=== PATIENT | female | born 1990 | race Caucasian/White ===

== ENCOUNTER 2017-10-31 21:26 | Inpatient (IN) | payer BC ==
[2017-10-31] MEDS ORDERED: Nalbuphine 10 MG/1 ML Vial IVPUSH PRN (22:22)
[2017-10-31] MEDS ORDERED: Tranexamic Acid 1,000 MG in Sodium Chloride 0.9% 100 ML IV PRN (22:22)
[2017-10-31] MEDS ORDERED: Misoprostol 200 MCG Tab PO PRN (22:22)
[2017-10-31] MEDS ORDERED: Butorphanol 1 MG/ML SDV IVPUSH PRN (22:22)
[2017-10-31] MEDS ORDERED: Methylergonovine 0.2 MG/1 ML Amp IM PRN (22:22)
[2017-10-31] MEDS ORDERED: Sodium Chloride 0.9% 10 ML Syringe FLUSH PRN (22:22)
[2017-10-31] MEDS ORDERED: Water For Irrigation,Sterile 1,000 ML Container IRR PRN (22:22)
[2017-10-31] MEDS ORDERED: Sodium Chloride 0.9% 2.5 ML Syringe FLUSH PRN (22:22)
[2017-10-31] MEDS ORDERED: Carboprost Tromethamine 250 MCG/1 ML Amp IM PRN (22:22)
[2017-10-31] MEDS ORDERED: Lidocaine 1% 50 ML MDV INJECT PRN (22:22)
[2017-10-31] MEDS ORDERED: Oxytocin/0.9 % Sodium Chloride 30 UNIT/500 ML BAG IV SCH (22:30)
--- NOTE | 2017-10-31 23:12 | PCM.SN ---
- Free Text/Narrative Note: Notified by nursing that they have been unable to obtain IV access. 20g PIV started to Rt wrist, 10mL of blood was obtained for lab studies. Secured with tape and tegaderm.
[2017-11-01] MEDS ORDERED: Terbutaline 1 MG/ML SDV SUBCUT PRN (01:24)
[2017-11-01] MEDS ORDERED: Oxytocin/0.9 % Sodium Chloride 30 UNIT/500 ML BAG IV SCH (01:30)
[2017-11-01] MEDS: Lactated Ringers 1,000 ML IV SCH ×3 (02:06→09:49)
[2017-11-01] MEDS ORDERED: fentaNYL 100 MCG/2 ML SDV ONE (08:12)
[2017-11-01] MEDS ORDERED: EPINEPHrine 1:10,000 1 MG/10 ML Syringe ONE (08:53)
--- NOTE | 2017-11-01 09:52 | PCM.PREANE ---
Preanesthetic Assessment - Anesthesia/Transfusion/Family Hx Anesthesia History: Prior Anesthesia Without Reaction Family History of Anesthesia Reaction: No Transfusion History: No Prior Transfusion(s) Intubation History: Unknown - Review of Systems General: No Symptoms Pulmonary: No Symptoms Cardiovascular: No Symptoms Gastrointestinal: No Symptoms Neurological: No Symptoms Other: Reports: None - Physical Assessment Height: 1.75 m Weight: 108.862 kg ASA Class: 2 Mental Status: Alert & Oriented x3 Airway Class: Mallampati = 2 Dentition: Reports: Normal Dentition Thyro-Mental Finger Breadths: 3 Mouth Opening Finger Breadths: 3 ROM/Head Extension: Full Lungs: Clear to Auscultation, Normal Respiratory Effort Cardiovascular: Regular Rate, Regular Rhythm - Lab Values: Laboratory Last Values WBC 13.24 K/uL (4.0-11.0) H 10/31/17 23:00 RBC 4.15 M/uL (4.30-5.90) L 10/31/17 23:00 Hgb 12.9 g/dL (12.0-16.0) 10/31/17 23:00 Hct 38.1 % (36.0-46.0) 10/31/17 23:00 MCV 91.8 fL (80.0-98.0) 10/31/17 23:00 MCH 31.1 pg (27.0-32.0) 10/31/17 23:00 MCHC 33.9 g/dL (31.0-37.0) 10/31/17 23:00 RDW Std Deviation 47.1 fl (28.0-62.0) 10/31/17 23:00 RDW Coeff of Chloé 14 % (11.0-15.0) 10/31/17 23:00 Plt Count 223 K/uL (150-400) 10/31/17 23:00 MPV 10.90 fL (7.40-12.00) 10/31/17 23:00 Nucleated RBC % 0.0 /100WBC 10/31/17 23:00 Nucleated RBCs # 0 K/uL 10/31/17 23:00 Membrane Rupture POSITIVE 10/31/17 21:50 Blood Type O POSITIVE 10/31/17 23:00 Antibody Screen NEGATIVE 10/31/17 23:00 - Allergies Allergies/Adverse Reactions: Allergies Allergy/AdvReac Type Severity Reaction Status Date / Time No Known Allergies Allergy Verified 10/31/17 21:32 - Blood Blood Available: No - Anesthesia Plan Pre-Op Medication Ordered: None - Acknowledgements Anesthesia Type Planned: Epidural Pt an Appropriate Candidate for the Planned Anesthesia: Yes Alternatives and Risks of Anesthesia Discussed w Pt/Guardian: Yes Pt/Guardian Understands and Agrees with Anesthesia Plan: Yes PreAnesthesia Questionnaire DITCH DIGGER History: Reports: , Other (See Below) Other OB/BYN History: ovary removed. - Past Surgical History HEENT Surgical History: Reports: Tonsillectomy - SUBSTANCE USE Smoking Status *Q: Never Smoker Second Hand Smoke Exposure: No - CURRENT (IN HOUSE) MEDS Current Meds: Current Medications Butorphanol Tartrate (Stadol) 1 mg IVPUSH Q1H PRN PRN Reason: Pain Last Admin: 11/01/17 07:42 Dose: 1 mg Carboprost Tromethamine (Hemabate Ds) 250 mcg IM ASDIRECTED PRN PRN Reason: Post Hemorrhage Tranexamic Acid 1,000 mg/ (Sodium Chloride) 110 mls @ 660 mls/hr IV ONETIME PRN PRN Reason: Bleeding Lactated Ringer's (Ringers, Lactated) 1,000 mls @ 150 mls/hr IV ASDIRECTED ELLIS Last Admin: 11/01/17 09:49 Dose: 150 mls/hr Oxytocin/Sodium Chloride (Oxytocin 30 Unit/500 Ml-Ns) 30 unit in 500 mls @ 250 mls/hr IV TITRATE ELLIS Oxytocin/Sodium Chloride (Oxytocin 30 Unit/500 Ml-Ns) 30 unit in 500 mls @ 2 mls/hr IV TITRATE ELLIS; 2 MUNITS/MIN PRN Reason: Protocol Last Titration: 11/01/17 05:03 Dose: 18 munits/min, 18 mls/hr Lidocaine HCl (Xylocaine 1%) 50 ml INJECT .ONCE PRN PRN Reason: Laceration repair Methylergonovine Maleate (Methergine) 0.2 mg IM ASDIRECTED PRN PRN Reason: Post Hemorrhage Misoprostol (Cytotec) 200 mcg PO .ONCE PRN PRN Reason: Post Hemorrhage Nalbuphine HCl (Nubain) 10 mg IVPUSH Q1H PRN PRN Reason: Pain (severe 7-10) Sodium Chloride (Saline Flush) 10 ml FLUSH ASDIRECTED PRN PRN Reason: Keep Vein Open Sodium Chloride (Saline Flush) 2.5 ml FLUSH ASDIRECTED PRN PRN Reason: Keep Vein Open Sterile Water (Sterile Water For Irrigation) 1,000 ml IRR ASDIRECTED PRN PRN Reason: delivery Terbutaline Sulfate (Brethine) 0.25 mg SUBCUT ASDIRECTED PRN PRN Reason: Tacysystole Discontinued Medications Epinephrine HCl (Epinephrine 1:10,000) Confirm Administered Dose 1 mg .ROUTE .STK-MED ONE Stop: 11/01/17 08:54 Fentanyl (Sublimaze) Confirm Administered Dose 200 mcg .ROUTE .STK-MED ONE Stop: 11/01/17 08:13 Fentanyl/Bupivacaine HCl (Cvpowlgh-Loioz-Nd 2 Mcg/Ml-0.125%) Confirm Administered Dose 100 mls @ as directed EP .STK-MED ONE Stop: 11/01/17 08:13
[2017-11-01] MEDS ORDERED: Witch Hazel Medicated Pads 40/Jar TOP PRN (18:24)
[2017-11-01] MEDS ORDERED: Ibuprofen 400 MG Tab PO PRN (18:24)
[2017-11-01] MEDS ORDERED: Bisacodyl 10 MG Supp RECTAL PRN (18:24)
[2017-11-01] MEDS ORDERED: Acetaminophen 500 MG Tab PO PRN ×2 (18:24)
[2017-11-01] MEDS ORDERED: Lanolin 100% Cream 7 GM Tube TOP PRN (18:24)
[2017-11-01] MEDS ORDERED: Benzocaine/Menthol 20%-0.5% Spray 78 GM Cannister TOP PRN (18:24)
[2017-11-01] MEDS: Ibuprofen 800 MG Tab PO PRN (21:22)
[2017-11-01] MEDS: Docusate Sodium 100 MG Cap PO PRN (21:22)
--- NOTE | 2017-11-02 09:29 | PCM48HPAN ---
Post Anesthesia Note - EVALUATION WITHIN 48HRS OF ANESTHETIC Vital Signs in Normal Range: Yes Patient Participated in Evaluation: Yes Respiratory Function Stable: Yes Airway Patent: Yes Cardiovascular Function Stable: Yes Hydration Status Stable: Yes Pain Control Satisfactory: Yes Nausea and Vomiting Control Satisfactory: Yes Mental Status Recovered: Yes Resp Rate: 16
--- NOTE | 2017-11-02 12:45 | OR ---
SURGEON: CALISTA CROWLEY PREOPERATIVE DIAGNOSIS: A 27-year-old, G1, P0, at 38 weeks and 5 days with PROM, GBS negative. POSTOPERATIVE DIAGNOSES: Status post normal spontaneous vaginal delivery and Repair of bilateral labial lacerations PROCEDURES: 1.Spontaneous vaginal delivery and 2. Repair of bilateral labial lacerations. ANESTHESIA: Epidural. ESTIMATED BLOOD LOSS: 250 mL. FINDINGS: Live male delivered at 1752 hours. scores were 8 and 9. Weight was 3170 g. There was nuchal cord around the neck, which was reduced and true knot was also noted, 3VC BRIEF HISTORY: 27-year-old G1, P0, at 38 weeks and 5 days admitted for SROM. On admission she was 2, 70, -2. She was started on Pitocin when contractions were spaced out. Patient made cervical change to 4, 60, -2. The patient was noted during the labor course to have late deceleration when she was on Pitocin at 20 milliunits. She was placed on left lateral position, oxygen. Patient recovered and Pitocin was restarted. After the Pitocin was started and titrated up to 6, she was noted again to have also late deceleration and was reduced to 2mu. The patient made adequate interval change to 9cm. When she was 9 cm, she was examined and the head was found to be in OP position. The head was manually rotated to OA position. Subsequently she became Fully dilated and was encouraged to push. PROCEDURE IN DETAIL: With the patient's good pushing effort, the head was delivered and the nuchal cord was noted around the neck which was reduced. After delivery of the head, anterior shoulder was delivered followed by the posterior shoulder, then the body of the infant was delivered and placed on the maternal abdomen. The infant was sucked with bulb syringe . Delayed cord clamping was observed.Cord blood gases were obtained. Pitocin was started after delivery of the anterior shoulder.The placenta was delivered via controlled cord traction. Inspection of the labia noted bilateral labial laceration which was repaired with 3-0 Monocryl. The perineum was then inspected. Hemostasis was noted. All instrument and pads were correct x2. The patient was left with infant in stable condition. DEVAUGHN / ESSENCE /[id number] SHYANN
[2017-11-02] MEDS: Ibuprofen 800 MG Tab PO PRN ×2 (12:54→22:48)
[2017-11-02] MEDS: Docusate Sodium 100 MG Cap PO PRN ×2 (12:56→22:48)
--- NOTE | 2017-11-02 17:30 | PCM.PNPP ---
- General Info Date of Service: 11/02/17 Admission Dx/Problem (Free Text): 27yo P1 s/p PPD1 Subjective Update: Denies any complains , ambulating , tolerating regular diet and breast feeding Functional Status: Reports: Pain Controlled, Tolerating Diet, Ambulating, Urinating - Review of Systems General: Reports: No Symptoms HEENT: Reports: No Symptoms Pulmonary: Reports: No Symptoms Cardiovascular: Reports: No Symptoms Gastrointestinal: Reports: No Symptoms Genitourinary: Reports: No Symptoms Musculoskeletal: Reports: No Symptoms Skin: Reports: No Symptoms Neurological: Reports: No Symptoms Psychiatric: Reports: No Symptoms - General Info Date of Service: 11/02/17 - Patient Data Vital Signs - Most Recent: Last Vital Signs Temp 36.3 C 11/02/17 16:15 Pulse 96 11/02/17 16:15 Resp 18 11/02/17 16:15 BP 109/63 11/02/17 16:15 Pulse Ox 96 11/02/17 16:15 Weight - Most Recent: 108.862 kg Lab Results - Last 24 Hours: Laboratory Results - last 24 hr 11/02/17 Range/Units 05:17 Hgb 11.7 L (12.0-16.0) g/dL Hct 35.6 L (36.0-46.0) % Med Orders - Current: Current Medications Acetaminophen (Tylenol Extra Strength) 500 mg PO Q4H PRN PRN Reason: Pain Acetaminophen (Tylenol Extra Strength) 1,000 mg PO Q4H PRN PRN Reason: Pain Last Admin: 11/02/17 15:22 Dose: 1,000 mg Benzocaine/Menthol (Dermoplast Pain Relief 20%-0.5% [place]) 78 gm TOP ASDIRECTED PRN PRN Reason: Perineal Comfort Measure Bisacodyl (Dulcolax) 10 mg RECTAL .ONCE PRN PRN Reason: Constipation Carboprost Tromethamine (Hemabate Ds) 250 mcg IM ASDIRECTED PRN PRN Reason: Post Hemorrhage Docusate Sodium (Colace) 100 mg PO BID PRN PRN Reason: Constipation Last Admin: 11/02/17 12:56 Dose: 100 mg Emollient Ointment (Lansinoh Hpa) 0 gm TOP ASDIRECTED PRN PRN Reason: Sore Nipples Last Admin: 11/01/17 21:19 Dose: 1 tube Tranexamic Acid 1,000 mg/ (Sodium Chloride) 110 mls @ 660 mls/hr IV ONETIME PRN PRN Reason: Bleeding Lactated Ringer's (Ringers, Lactated) 1,000 mls @ 150 mls/hr IV ASDIRECTED ELLIS Last Admin: 11/01/17 09:49 Dose: 150 mls/hr Oxytocin/Sodium Chloride (Oxytocin 30 Unit/500 Ml-Ns) 30 unit in 500 mls @ 250 mls/hr IV TITRATE ELLIS Last Admin: 11/01/17 18:45 Dose: 250 mls/hr Oxytocin/Sodium Chloride (Oxytocin 30 Unit/500 Ml-Ns) 30 unit in 500 mls @ 2 mls/hr IV TITRATE ELLIS; 2 MUNITS/MIN PRN Reason: Protocol Last Titration: 11/01/17 15:16 Dose: 4 munits/min, 4 mls/hr Ibuprofen (Motrin) 400 mg PO Q4H PRN PRN Reason: Pain Ibuprofen (Motrin) 800 mg PO Q6H PRN PRN Reason: Pain Last Admin: 11/02/17 12:54 Dose: 800 mg Lidocaine HCl (Xylocaine 1%) 50 ml INJECT .ONCE PRN PRN Reason: Laceration repair Last Admin: 11/01/17 18:14 Dose: 50 ml Methylergonovine Maleate (Methergine) 0.2 mg IM ASDIRECTED PRN PRN Reason: Post Hemorrhage Misoprostol (Cytotec) 200 mcg PO .ONCE PRN PRN Reason: Post Hemorrhage Sodium Chloride (Saline Flush) 10 ml FLUSH ASDIRECTED PRN PRN Reason: Keep Vein Open Sodium Chloride (Saline Flush) 2.5 ml FLUSH ASDIRECTED PRN PRN Reason: Keep Vein Open Sterile Water (Sterile Water For Irrigation) 1,000 ml IRR ASDIRECTED PRN PRN Reason: delivery Last Admin: 11/01/17 18:27 Dose: 1,000 ml Terbutaline Sulfate (Brethine) 0.25 mg SUBCUT ASDIRECTED PRN PRN Reason: Tacysystole Witch Christie (Tucks) 1 pad TOP ASDIRECTED PRN PRN Reason: comfort care Discontinued Medications Butorphanol Tartrate (Stadol) 1 mg IVPUSH Q1H PRN PRN Reason: Pain Last Admin: 11/01/17 07:42 Dose: 1 mg Epinephrine HCl (Epinephrine 1:10,000) Confirm Administered Dose 1 mg .ROUTE .STK-MED ONE Stop: 11/01/17 08:54 Last Admin: 11/01/17 20:33 Dose: Not Given Fentanyl (Sublimaze) Confirm Administered Dose 200 mcg .ROUTE .STK-MED ONE Stop: 11/01/17 08:13 Last Admin: 11/01/17 20:32 Dose: Not Given Fentanyl/Bupivacaine HCl (Frcoedwx-Wvcbh-Wx 2 Mcg/Ml-0.125%) Confirm Administered Dose 100 mls @ as directed EP .STK-MED ONE Stop: 11/01/17 08:13 Nalbuphine HCl (Nubain) 10 mg IVPUSH Q1H PRN PRN Reason: Pain (severe 7-10) - Interaction Disposition, : at Bedside Interaction: Holding Infant Feeding: Breastfed ; Nursed Well Support Person: Mother, Significant Other - Recovery Exam Fundal Tone: Firm Fundal Level: 1 Fingerbreadths Below Umbilicus Fundal Placement: Midline Lochia Amount: Scant Lochia Color: Rubra/Red Perineum Description: Other (see below) Other Perinuem Description: 2nd degree laceration Episiotomy/Laceration: Approximated Bladder Status: Voiding Urinary Elimination: Voided - Exam General: Alert, Oriented HEENT: Pupils Equal Neck: Supple Lungs: Clear to Auscultation Cardiovascular: Regular Rate, Regular Rhythm GI/Abdominal Exam: Normal Bowel Sounds Extremities: Normal Inspection Skin: Warm Wound/Incisions: Healing Well Neurological: No New Focal Deficit Psy/Mental Status: Alert - Problem List & Annotations (1) Vaginal delivery SNOMED Code(s): 419452407 Code(s): O80 - ENCOUNTER FOR FULL-TERM UNCOMPLICATED DELIVERY Status: Acute Current Visit: Yes - Problem List Review Problem List Initiated/Reviewed/Updated: Yes - My Orders Last 24 Hours: My Active Orders 11/01/17 18:24 Patient Status [ADT] Routine May Shower [RC] ASDIRECTED Up ad Saumya [RC] ASDIRECTED Vital Signs [RC] PER UNIT ROUTINE Acetaminophen [Tylenol Extra Strength] 1,000 mg PO Q4H PRN Acetaminophen [Tylenol Extra Strength] 500 mg PO Q4H PRN Benzocaine/Menthol [Dermoplast Pain Relief 20%-0.5% [place]] 78 gm TOP ASDIRECTED PRN Bisacodyl [Dulcolax] 10 mg RECTAL .ONCE PRN Docusate Sodium [Colace] 100 mg PO BID PRN Ibuprofen [Motrin] 400 mg PO Q4H PRN Ibuprofen [Motrin] 800 mg PO Q6H PRN Lanolin [Lansinoh HPA] See Dose Instructions TOP ASDIRECTED PRN Witch Christie [Tucks] 1 pad TOP ASDIRECTED PRN Assess Uterine Involution [WOMSER] Per Unit Routine Peripheral IV Discontinue [OM.PC] Routine 11/02/17 Breakfast Regular Diet [DIET] - Assessment Assessment:: 27yo P1 s/p PPD1 - Plan Plan:: 27 yo P1 s/p , Minimal lochia Plan: Routine Continue and ambulating Call [facility] if vaginal bleeding > 1 pad in 1 hr
[2017-11-03] MEDS: Docusate Sodium 100 MG Cap PO PRN (08:26)
[2017-11-03] MEDS: Ibuprofen 800 MG Tab PO PRN (08:26)
== END 2017-11-03 13:00 | disposition home or self-care (01) | DRG 560 ==
LOC: MW.OBCHECK 21:26 → MW.OB 21:26 → MW.OBCHECK 22:22 → MW.OB 23:38 → OBSVTOIN 11-01 17:52 → MW.OB 11-01 21:30
PROVIDERS: ADMIT Obstetrics & Gynecology; ATTEND Obstetrics & Gynecology
PROC: 10E0XZZ Delivery of Products of Conception, External Approach (ICD-10-PCS; principal; 2017-11-01)
PROC: 3E033VJ Introduction of Other Hormone into Peripheral Vein, Percutaneous Approach (ICD-10-PCS; 2017-11-01)
PROC: 0HQ9XZZ Repair Perineum Skin, External Approach (ICD-10-PCS; 2017-11-01)
DX: O42.02 Full-term premature rupture of membranes, onset of labor within 24 hours of rupture (principal); O69.1XX0 Labor and delivery complicated by cord around neck, with compression, not applicable or unspecified; Z3A.38 38 weeks gestation of pregnancy; Z37.0 Single live birth
CPT/HCPCS: 36415; 59025; 59409; 84112; 85014; 85018; 85027; 86850; 86900; 86901; A9270-GY; J0595; J2590; J3010; J7120

== ENCOUNTER 2020-01-03 00:11 | Inpatient (IN) | payer BC ==
[2020-01-03] MEDS ORDERED: Lidocaine 1% 50 ML MDV INJECT PRN (00:44)
[2020-01-03] MEDS ORDERED: Terbutaline 1 MG/ML SDV SUBCUT PRN (00:44)
[2020-01-03] MEDS ORDERED: Water For Irrigation,Sterile 1,000 ML Container IRR PRN (00:44)
[2020-01-03] MEDS ORDERED: Carboprost Tromethamine 250 MCG/1 ML Amp IM PRN (00:44)
[2020-01-03] MEDS ORDERED: Nalbuphine 10 MG/1 ML Vial IVPUSH PRN (00:44)
[2020-01-03] MEDS ORDERED: Sodium Chloride 0.9% 10 ML Syringe FLUSH PRN (00:44)
[2020-01-03] MEDS ORDERED: Methylergonovine 0.2 MG/1 ML Amp IM PRN (00:44)
[2020-01-03] MEDS ORDERED: Misoprostol 25 MCG (1/4 of 100 MCG) Tab VAG PRN ×2 (00:44)
[2020-01-03] MEDS ORDERED: Butorphanol 1 MG/ML SDV IVPUSH PRN (00:44)
[2020-01-03] MEDS ORDERED: Sodium Chloride 0.9% 10 ML SDV IV PRN (00:44)
[2020-01-03] MEDS ORDERED: Misoprostol 200 MCG Tab PO PRN (00:44)
[2020-01-03] MEDS ORDERED: Ondansetron 4 MG/2 ML SDV IVPUSH PRN (00:44)
[2020-01-03] MEDS ORDERED: Tranexamic Acid 1,000 MG in Sodium Chloride 0.9% 100 ML IV PRN (00:44)
[2020-01-03] MEDS ORDERED: Sodium Chloride 0.9% 2.5 ML Syringe FLUSH PRN (00:44)
[2020-01-03] MEDS ORDERED: Lactated Ringers 1,000 ML IV SCH (00:45)
[2020-01-03] MEDS ORDERED: Oxytocin/0.9 % Sodium Chloride 30 UNIT/500 ML BAG IV SCH ×2 (00:45)
[2020-01-03] MEDS ORDERED: Ropivacaine HCl/PF 100 ML ONE (09:23)
[2020-01-03] MEDS ORDERED: fentaNYL 100 MCG/2 ML SDV ONE (09:23)
--- NOTE | 2020-01-03 09:44 | PCM.PREANE ---
Preanesthetic Assessment - Anesthesia/Transfusion/Family Hx Anesthesia History: Prior Anesthesia Without Reaction Family History of Anesthesia Reaction: No Transfusion History: No Prior Transfusion(s) - Physical Assessment NPO Status Date: 01/03/20 NPO Status Time: 08:00 Height: 1.78 m Weight: 122.47 kg ASA Class: 1 - Lab Values: Laboratory Last Values WBC 14.70 K/uL (4.0-11.0) H 01/03/20 01:48 RBC 4.16 M/uL (4.30-5.90) L 01/03/20 01:48 Hgb 12.6 g/dL (12.0-16.0) 01/03/20 01:48 Hct 38.7 % (36.0-46.0) 01/03/20 01:48 MCV 93.0 fL (80.0-98.0) 01/03/20 01:48 MCH 30.3 pg (27.0-32.0) 01/03/20 01:48 MCHC 32.6 g/dL (31.0-37.0) 01/03/20 01:48 RDW Std Deviation 48.7 fl (28.0-62.0) 01/03/20 01:48 RDW Coeff of Chloé 14 % (11.0-15.0) 01/03/20 01:48 Plt Count 213 K/uL (150-400) 01/03/20 01:48 MPV 11.30 fL (7.40-12.00) 01/03/20 01:48 Nucleated RBC % 0.0 /100WBC 01/03/20 01:48 Nucleated RBCs # 0 K/uL 01/03/20 01:48 Blood Type O POSITIVE 01/03/20 01:48 Antibody Screen NEGATIVE 01/03/20 01:48 - Allergies Allergies/Adverse Reactions: Allergies Allergy/AdvReac Type Severity Reaction Status Date / Time No Known Allergies Allergy Verified 01/03/20 00:40 - Acknowledgements Anesthesia Type Planned: Epidural Pt an Appropriate Candidate for the Planned Anesthesia: Yes Alternatives and Risks of Anesthesia Discussed w Pt/Guardian: Yes Pt/Guardian Understands and Agrees with Anesthesia Plan: Yes PreAnesthesia Questionnaire Cardiovascular History: Reports: None Respiratory History: Reports: None Gastrointestinal History: Reports: None MICROBIOLOGY PROFESSOR History: Reports: None Neurological History: Reports: None Psychiatric History: Reports: None Endocrine/Metabolic History: Reports: None Hematologic History: Reports: None Oncologic (Cancer) History: Reports: None Dermatologic History: Reports: None - Infectious Disease History Infectious Disease History: Reports: Chicken Pox - Past Surgical History HEENT Surgical History: Reports: Tonsillectomy Female Surgical History: Reports: Oophorectomy Other Female Surgeries/Procedures: left ovary removed - SUBSTANCE USE Smoking Status *Q: Never Smoker Second Hand Smoke Exposure: No Recreational Drug Use History: No - HOME MEDS Home Medications: Home Meds No122/Iron/Folic Acid [ Multi Tablet] 1 each PO DAILY 07/10/19 [History] - CURRENT (IN HOUSE) MEDS Current Meds: Current Medications Butorphanol Tartrate (Stadol) 1 mg IVPUSH Q1H PRN PRN Reason: Pain Last Admin: 01/03/20 08:59 Dose: 1 mg Carboprost Tromethamine (Hemabate Ds) 250 mcg IM ASDIRECTED PRN PRN Reason: Post Hemorrhage Lactated Ringer's (Ringers, Lactated) 1,000 mls @ 150 mls/hr IV ASDIRECTED ELLIS Last Admin: 01/03/20 08:56 Dose: 999 mls/hr Oxytocin/Sodium Chloride (Oxytocin 30 Unit/500 Ml-Ns) 30 unit in 500 mls @ 2 mls/hr IV TITRATE ELLIS; Protocol Oxytocin/Sodium Chloride (Oxytocin 30 Unit/500 Ml-Ns) 30 unit in 500 mls @ 555 mls/hr IV TITRATE ELLIS Tranexamic Acid 1,000 mg/ (Sodium Chloride) 110 mls @ 660 mls/hr IV ONETIME PRN PRN Reason: Bleeding Lidocaine HCl (Xylocaine 1%) 50 ml INJECT ONETIME PRN PRN Reason: Laceration repair Methylergonovine Maleate (Methergine) 0.2 mg IM ASDIRECTED PRN PRN Reason: Post Hemorrhage Misoprostol (Cytotec) 25 mcg VAG ONETIME PRN PRN Reason: Cervical Ripening Last Admin: 01/03/20 01:51 Dose: 25 mcg Misoprostol (Cytotec) 25 mcg VAG Q4H PRN PRN Reason: Cervical Ripening Misoprostol (Cytotec) 200 mcg PO ONETIME PRN PRN Reason: Post Hemorrhage Nalbuphine HCl (Nubain) 10 mg IVPUSH Q1H PRN PRN Reason: Pain (severe 7-10) Ondansetron HCl (Zofran) 4 mg IVPUSH Q4H PRN PRN Reason: Nausea/Vomiting Sodium Chloride (Saline Flush) 10 ml FLUSH ASDIRECTED PRN PRN Reason: Keep Vein Open Sodium Chloride (Saline Flush) 2.5 ml FLUSH ASDIRECTED PRN PRN Reason: Keep Vein Open Sodium Chloride (Normal Saline) 10 ml IV ASDIRECTED PRN PRN Reason: IV Use Sterile Water (Sterile Water For Irrigation) 1,000 ml IRR ASDIRECTED PRN PRN Reason: delivery Terbutaline Sulfate (Brethine) 0.25 mg SUBCUT ASDIRECTED PRN PRN Reason: Tacysystole Discontinued Medications Fentanyl (Sublimaze) Confirm Administered Dose 100 mcg .ROUTE .STK-MED ONE Stop: 01/03/20 09:24 Ropivacaine (Naropin 0.2%) Confirm Administered Dose 100 mls @ as directed .ROUTE .STK-MED ONE Stop: 01/03/20 09:24
--- NOTE | 2020-01-03 09:47 | PCM.PRNOTE ---
- Free Text/Narrative Note: Anes NOte Patient requests epidural for L&D. Sitting position, level L3-L4 midline approach. Sterile technique. Chloraprep scrub to lumbar area. Sterile fenestrated drape applied. Epidural space easily achieved single attempt with ease using MINA technique. MINA at 3 cm. Cath threaded 5 cm with ease. Cath secured at skin at 9 cm using sterile clear adhesive dressing. 0935 Test 3 cc 1.5% lido with epi negative. 0939 Load 10 cc 0.2% ropivicaine with 1 mcg cc fentanyl in slow divided doses. 0945 Pump started with 90 cc same solution. Rate is 8 cc hr with 6 cc q 20 min prn bolus. Paige well. Time with patient [id number] Dani Hightower CRNA
[2020-01-03] MEDS ORDERED: Lidocaine 2% 5 ML SDV ONE ×2 (11:41→11:42)
[2020-01-03] MEDS ORDERED: Sugammadex Sodium 200 MG/2 ML VIAL ONE (14:00)
[2020-01-03] MEDS ORDERED: ePHEDrine 50 MG/ML SDV ONE (14:03)
[2020-01-03] MEDS ORDERED: Ketamine 500 mg/10 ML MDV ONE (14:03)
[2020-01-03] MEDS ORDERED: Rocuronium 100 MG/10 ML Syringe ONE (14:03)
[2020-01-03] MEDS ORDERED: Propofol 200 MG/20 ML SDV ONE (14:03)
[2020-01-03] MEDS ORDERED: Succinylcholine/Sod PF 100 MG/5 ML SYRINGE IV ONE (14:03)
[2020-01-03] MEDS ORDERED: Bisacodyl 10 MG Supp RECTAL PRN (16:03)
[2020-01-03] MEDS ORDERED: Lanolin 100% Cream 7 GM Tube TOP PRN (16:03)
[2020-01-03] MEDS ORDERED: Docusate Sodium 100 MG Cap PO PRN (16:03)
[2020-01-03] MEDS ORDERED: oxyCODONE 5 MG Tab PO PRN (16:03)
[2020-01-03] MEDS ORDERED: Acetaminophen 500 MG Tab PO PRN ×2 (16:03)
[2020-01-03] MEDS ORDERED: Benzocaine/Menthol 20%-0.5% Spray 78 GM Cannister TOP PRN (16:03)
[2020-01-03] MEDS ORDERED: Ibuprofen 400 MG Tab PO PRN (16:03)
[2020-01-03] MEDS ORDERED: Witch Hazel Medicated Pads 40/Jar TOP PRN (16:03)
--- NOTE | 2020-01-03 16:03 | PCM.PRNOTE ---
- Free Text/Narrative Note: Anes Note I was asked to standby for vaginal delivery in this patent with placental abruption. Smooth and uneventful dleivery at 1550. Time with patient [id number] Dani Hightower CRNA
--- NOTE | 2020-01-03 16:08 | PCM.DEL ---
L & D Note - General Info Date of Service: 01/03/20 Mother's Due Date: 01/07/20 - Delivery Note Cervical Ripening Method: Misoprostil Delivery Outcome: Livebirth Delivery Method: Spontaneous Vaginal Delivery-Single Presentation: Right Occiput Anterior (ANCELMO) Nuchal Cord: None Anesthesia Type: Epidural Amniotic Fluid Description: Clear Episiotomy Type: None Laceration: None Placenta: Spontaneous Cord: 3 Vessels Estimated Blood Loss: 300 Resuscitation Needed: No Score 1 min: 7 Score 5 min: 9 Delivery Comments (Free Text/Narrative):: Live Male delivered at 324pm , 7/9 , weight 4370g - General Info Date of Service: 01/03/20 - Patient Data Weight - Most Recent: 122.47 kg Lab Results Last 24 Hours: Laboratory Results - last 24 hr 01/03/20 01/03/20 Range/Units 01:48 01:48 WBC 14.70 H (4.0-11.0) K/uL RBC 4.16 L (4.30-5.90) M/uL Hgb 12.6 (12.0-16.0) g/dL Hct 38.7 (36.0-46.0) % MCV 93.0 (80.0-98.0) fL MCH 30.3 (27.0-32.0) pg MCHC 32.6 (31.0-37.0) g/dL RDW Std Deviation 48.7 (28.0-62.0) fl RDW Coeff of Chloé 14 (11.0-15.0) % Plt Count 213 (150-400) K/uL MPV 11.30 (7.40-12.00) fL Nucleated RBC % 0.0 /100WBC Nucleated RBCs # 0 K/uL Blood Type O POSITIVE Antibody Screen NEGATIVE Med Orders - Current: Current Medications Acetaminophen (Tylenol Extra Strength) 500 mg PO Q4H PRN PRN Reason: Pain Acetaminophen (Tylenol Extra Strength) 1,000 mg PO Q4H PRN PRN Reason: Pain Benzocaine/Menthol (Dermoplast Pain Relief 20%-0.5% [place]) 78 gm TOP ASDIRECTED PRN PRN Reason: Perineal Comfort Measure Bisacodyl (Dulcolax) 10 mg RECTAL ONETIME PRN PRN Reason: Constipation Butorphanol Tartrate (Stadol) 1 mg IVPUSH Q1H PRN PRN Reason: Pain Last Admin: 01/03/20 08:59 Dose: 1 mg Carboprost Tromethamine (Hemabate Ds) 250 mcg IM ASDIRECTED PRN PRN Reason: Post Hemorrhage Docusate Sodium (Colace) 100 mg PO BID PRN PRN Reason: Constipation Emollient Ointment (Lansinoh Hpa) 0 gm TOP ASDIRECTED PRN PRN Reason: Sore Nipples Lactated Ringer's (Ringers, Lactated) 1,000 mls @ 150 mls/hr IV ASDIRECTED ELLIS Last Admin: 01/03/20 08:56 Dose: 999 mls/hr Oxytocin/Sodium Chloride (Oxytocin 30 Unit/500 Ml-Ns) 30 unit in 500 mls @ 2 mls/hr IV TITRATE [facility]; Protocol Oxytocin/Sodium Chloride (Oxytocin 30 Unit/500 Ml-Ns) 30 unit in 500 mls @ 555 mls/hr IV TITRATE [facility] Tranexamic Acid 1,000 mg/ (Sodium Chloride) 110 mls @ 660 mls/hr IV ONETIME PRN PRN Reason: Bleeding Ibuprofen (Motrin) 400 mg PO Q4H PRN PRN Reason: Pain Ibuprofen (Motrin) 800 mg PO Q6H PRN PRN Reason: Pain Lidocaine HCl (Xylocaine 1%) 50 ml INJECT ONETIME PRN PRN Reason: Laceration repair Methylergonovine Maleate (Methergine) 0.2 mg IM ASDIRECTED PRN PRN Reason: Post Hemorrhage Misoprostol (Cytotec) 25 mcg VAG ONETIME PRN PRN Reason: Cervical Ripening Last Admin: 01/03/20 01:51 Dose: 25 mcg Misoprostol (Cytotec) 25 mcg VAG Q4H PRN PRN Reason: Cervical Ripening Misoprostol (Cytotec) 200 mcg PO ONETIME PRN PRN Reason: Post Hemorrhage Nalbuphine HCl (Nubain) 10 mg IVPUSH Q1H PRN PRN Reason: Pain (severe 7-10) Ondansetron HCl (Zofran) 4 mg IVPUSH Q4H PRN PRN Reason: Nausea/Vomiting Oxycodone HCl (Oxycodone) 5 mg PO Q2H PRN PRN Reason: Pain Sodium Chloride (Saline Flush) 10 ml FLUSH ASDIRECTED PRN PRN Reason: Keep Vein Open Sodium Chloride (Saline Flush) 2.5 ml FLUSH ASDIRECTED PRN PRN Reason: Keep Vein Open Sodium Chloride (Normal Saline) 10 ml IV ASDIRECTED PRN PRN Reason: IV Use Sterile Water (Sterile Water For Irrigation) 1,000 ml IRR ASDIRECTED PRN PRN Reason: delivery Terbutaline Sulfate (Brethine) 0.25 mg SUBCUT ASDIRECTED PRN PRN Reason: Tacysystole Last Admin: 01/03/20 11:48 Dose: 0.25 mg Witch Christie (Tucks) 1 pad TOP ASDIRECTED PRN PRN Reason: comfort care Discontinued Medications Ephedrine Sulfate (Ephedrine Sulfate) Confirm Administered Dose 50 mg .ROUTE .STK-MED ONE Stop: 01/03/20 14:04 Fentanyl (Sublimaze) Confirm Administered Dose 100 mcg .ROUTE .STK-MED ONE Stop: 01/03/20 09:24 Ropivacaine (Naropin 0.2%) Confirm Administered Dose 100 mls @ as directed .ROUTE .STK-MED ONE Stop: 01/03/20 09:24 Ketamine HCl (Ketalar) Confirm Administered Dose 500 mg .ROUTE .STK-MED ONE Stop: 01/03/20 14:04 Lidocaine (Xylocaine-Mpf 2%) Confirm Administered Dose 5 ml .ROUTE .STK-MED ONE Stop: 01/03/20 11:42 Lidocaine (Xylocaine-Mpf 2%) Confirm Administered Dose 15 ml .ROUTE .STK-MED ONE Stop: 01/03/20 11:43 Propofol (Diprivan 20 Ml) Confirm Administered Dose 200 mg .ROUTE .STK-MED ONE Stop: 01/03/20 14:04 Rocuronium [place] (Zemuron) Confirm Administered Dose 100 mg .ROUTE .STK-MED ONE Stop: 01/03/20 14:04 Sugammadex Sodium (Bridion) Confirm Administered Dose 200 mg .ROUTE .STK-MED ONE Stop: 01/03/20 14:01 - Problem List & Annotations (1) Vaginal delivery SNOMED Code(s): 234271305 Code(s): O80 - ENCOUNTER FOR FULL-TERM UNCOMPLICATED DELIVERY Status: Acute Current Visit: Yes - Problem List Review Problem List Initiated/Reviewed/Updated: Yes - My Orders Last 24 Hours: My Active Orders 01/03/20 00:44 Patient Status [ADT] Routine Bedrest Bathroom Privileges [RC] ASDIRECTED Communication Order [RC] ASDIRECTED May Shower [RC] ASDIRECTED Notify Provider [RC] PRN Oxygen Therapy [RC] ASDIRECTED Up ad Saumya [RC] ASDIRECTED Vital Signs [RC] PER UNIT ROUTINE Butorphanol [Stadol] 1 mg IVPUSH Q1H PRN Carboprost Tromethamine [Hemabate DS] 250 mcg IM ASDIRECTED PRN Lidocaine 1% [Xylocaine 1%] 50 ml INJECT ONETIME PRN Methylergonovine [Methergine] 0.2 mg IM ASDIRECTED PRN Nalbuphine [Nubain] 10 mg IVPUSH Q1H PRN Ondansetron [Zofran] 4 mg IVPUSH Q4H PRN Sodium Chloride 0.9% [Normal Saline] 10 ml IV ASDIRECTED PRN Sodium Chloride 0.9% [Saline Flush] 10 ml FLUSH ASDIRECTED PRN Sodium Chloride 0.9% [Saline Flush] 2.5 ml FLUSH ASDIRECTED PRN Terbutaline [Brethine] 0.25 mg SUBCUT ASDIRECTED PRN Tranexamic Acid [Cyklokapron] 1,000 mg Sodium Chloride 0.9% [Normal Saline] 100 ml IV ONETIME Water For Irrigation,Sterile [Sterile Water for Irrigation] 1,000 ml IRR ASDIRECTED PRN miSOPROStoL [Cytotec] 200 mcg PO ONETIME PRN miSOPROStoL [Cytotec] 25 mcg VAG ONETIME PRN miSOPROStoL [Cytotec] 25 mcg VAG Q4H PRN Peripheral IV Insertion Adult [OM.PC] Routine 01/03/20 00:45 Lactated Ringers [Ringers, Lactated] 1,000 ml IV ASDIRECTED Oxytocin/0.9 % Sodium Chloride [Oxytocin 30 Unit/500 ML-NS] 30 unit in 500 ml IV TITRATE Oxytocin/0.9 % Sodium Chloride [Oxytocin 30 Unit/500 ML-NS] 30 unit in 500 ml IV TITRATE Medication Administration Instruction [OM.PC] Q3H 01/03/20 01:48 RPR (SYPHILIS SERO) W/ RFLX [REF] Routine 01/03/20 16:03 Patient Status [ADT] Routine May Shower [RC] ASDIRECTED Up ad Saumya [RC] ASDIRECTED Vital Signs [RC] PER UNIT ROUTINE BLOOD GAS ARTERIAL UMBILICAL [BG] Stat BLOOD GAS VENOUS UMBILICAL [BG] Stat Acetaminophen [Tylenol Extra Strength] 1,000 mg PO Q4H PRN Acetaminophen [Tylenol Extra Strength] 500 mg PO Q4H PRN Benzocaine/Menthol [Dermoplast Pain Relief 20%-0.5% [place]] 78 gm TOP ASDIRECTED PRN Docusate Sodium [Colace] 100 mg PO BID PRN Ibuprofen [Motrin] 400 mg PO Q4H PRN Ibuprofen [Motrin] 800 mg PO Q6H PRN Lanolin [Lansinoh HPA] See Dose Instructions TOP ASDIRECTED PRN bisacodyL [Dulcolax] 10 mg RECTAL ONETIME PRN oxyCODONE 5 mg PO Q2H PRN witch Christie [Tucks] 1 pad TOP ASDIRECTED PRN Assess Lochia [WOMSER] Per Unit Routine Assess Uterine Involution [WOMSER] Per Unit Routine Peripheral IV Discontinue [OM.PC] Routine Resuscitation Status Routine 01/03/20 Breakfast Regular Diet [DIET] 01/04/20 05:11 HEMOGLOBIN/HEMATOCRIT,HH [HEME] Timed
[2020-01-03] MEDS: Ibuprofen 800 MG Tab PO PRN (20:10)
[2020-01-04] MEDS: Ibuprofen 800 MG Tab PO PRN ×2 (04:07→16:43)
--- NOTE | 2020-01-04 06:43 | PCM.PNPP ---
- General Info Date of Service: 01/04/20 Subjective Update: 29yo P2 s/p PPD1 ,normal lochia, having trouble with due to tongue tie Functional Status: Reports: Pain Controlled, Tolerating Diet, Ambulating, Urinating - Review of Systems General: Reports: No Symptoms HEENT: Reports: No Symptoms Pulmonary: Reports: No Symptoms Cardiovascular: Reports: No Symptoms Gastrointestinal: Reports: No Symptoms Genitourinary: Reports: No Symptoms Musculoskeletal: Reports: No Symptoms Skin: Reports: No Symptoms Neurological: Reports: No Symptoms Psychiatric: Reports: No Symptoms - General Info Date of Service: 01/04/20 - Patient Data Vital Signs - Most Recent: Last Vital Signs Temp 36.0 C L 01/04/20 04:00 Pulse 89 01/04/20 04:00 Resp 16 01/04/20 04:00 BP 138/78 01/04/20 04:00 Pulse Ox 98 01/04/20 04:00 Weight - Most Recent: 122.47 kg Lab Results - Last 24 Hours: Laboratory Results - last 24 hr 01/03/20 01/04/20 Range/Units 15:24 05:33 Hgb 11.5 L (12.0-16.0) g/dL Hct 36.5 (36.0-46.0) % Cord ABG pH 7.131 L (7.18-7.38) Cord ABG Base Excess -8 (-10--2) Cord VBG pH 7.256 (7.25-7.45) Cord VBG Base Excess -5 (-10--2) Med Orders - Current: Current Medications Acetaminophen (Tylenol Extra Strength) 500 mg PO Q4H PRN PRN Reason: Pain Acetaminophen (Tylenol Extra Strength) 1,000 mg PO Q4H PRN PRN Reason: Pain Benzocaine/Menthol (Dermoplast Pain Relief 20%-0.5% [place]) 78 gm TOP ASDIRECTED PRN PRN Reason: Perineal Comfort Measure Last Admin: 01/03/20 20:12 Dose: 1 can Bisacodyl (Dulcolax) 10 mg RECTAL ONETIME PRN PRN Reason: Constipation Butorphanol Tartrate (Stadol) 1 mg IVPUSH Q1H PRN PRN Reason: Pain Last Admin: 01/03/20 08:59 Dose: 1 mg Carboprost Tromethamine (Hemabate Ds) 250 mcg IM ASDIRECTED PRN PRN Reason: Post Hemorrhage Docusate Sodium (Colace) 100 mg PO BID PRN PRN Reason: Constipation Emollient Ointment (Lansinoh Hpa) 0 gm TOP ASDIRECTED PRN PRN Reason: Sore Nipples Lactated Ringer's (Ringers, Lactated) 1,000 mls @ 150 mls/hr IV ASDIRECTED ELLIS Last Admin: 01/03/20 08:56 Dose: 999 mls/hr Oxytocin/Sodium Chloride (Oxytocin 30 Unit/500 Ml-Ns) 30 unit in 500 mls @ 2 mls/hr IV TITRATE [facility]; Protocol Oxytocin/Sodium Chloride (Oxytocin 30 Unit/500 Ml-Ns) 30 unit in 500 mls @ 555 mls/hr IV TITRATE ELLIS Tranexamic Acid 1,000 mg/ (Sodium Chloride) 110 mls @ 660 mls/hr IV ONETIME PRN PRN Reason: Bleeding Ibuprofen (Motrin) 400 mg PO Q4H PRN PRN Reason: Pain Ibuprofen (Motrin) 800 mg PO Q6H PRN PRN Reason: Pain Last Admin: 01/04/20 04:07 Dose: 800 mg Lidocaine HCl (Xylocaine 1%) 50 ml INJECT ONETIME PRN PRN Reason: Laceration repair Methylergonovine Maleate (Methergine) 0.2 mg IM ASDIRECTED PRN PRN Reason: Post Hemorrhage Misoprostol (Cytotec) 25 mcg VAG ONETIME PRN PRN Reason: Cervical Ripening Last Admin: 01/03/20 01:51 Dose: 25 mcg Misoprostol (Cytotec) 25 mcg VAG Q4H PRN PRN Reason: Cervical Ripening Misoprostol (Cytotec) 200 mcg PO ONETIME PRN PRN Reason: Post Hemorrhage Nalbuphine HCl (Nubain) 10 mg IVPUSH Q1H PRN PRN Reason: Pain (severe 7-10) Ondansetron HCl (Zofran) 4 mg IVPUSH Q4H PRN PRN Reason: Nausea/Vomiting Oxycodone HCl (Oxycodone) 5 mg PO Q2H PRN PRN Reason: Pain Sodium Chloride (Saline Flush) 10 ml FLUSH ASDIRECTED PRN PRN Reason: Keep Vein Open Sodium Chloride (Saline Flush) 2.5 ml FLUSH ASDIRECTED PRN PRN Reason: Keep Vein Open Sodium Chloride (Normal Saline) 10 ml IV ASDIRECTED PRN PRN Reason: IV Use Sterile Water (Sterile Water For Irrigation) 1,000 ml IRR ASDIRECTED PRN PRN Reason: delivery Terbutaline Sulfate (Brethine) 0.25 mg SUBCUT ASDIRECTED PRN PRN Reason: Tacysystole Last Admin: 01/03/20 11:48 Dose: 0.25 mg Witch Albert[place] (Tucks) 1 pad TOP ASDIRECTED PRN PRN Reason: comfort care Last Admin: 01/03/20 20:12 Dose: 1 tub Discontinued Medications Ephedrine Sulfate (Ephedrine Sulfate) Confirm Administered Dose 50 mg .ROUTE .STK-MED ONE Stop: 01/03/20 14:04 Fentanyl (Sublimaze) Confirm Administered Dose 100 mcg .ROUTE .STK-MED ONE Stop: 01/03/20 09:24 Last Admin: 01/04/20 00:50 Dose: Not Given Ropivacaine (Naropin 0.2%) Confirm Administered Dose 100 mls @ as directed .ROUTE .STK-MED ONE Stop: 01/03/20 09:24 Last Admin: 01/04/20 00:50 Dose: Not Given Ketamine HCl (Ketalar) Confirm Administered Dose 500 mg .ROUTE .STK-MED ONE Stop: 01/03/20 14:04 Lidocaine (Xylocaine-Mpf 2%) Confirm Administered Dose 5 ml .ROUTE .STK-MED ONE Stop: 01/03/20 11:42 Lidocaine (Xylocaine-Mpf 2%) Confirm Administered Dose 15 ml .ROUTE .STK-MED ONE Stop: 01/03/20 11:43 Propofol (Diprivan 20 Ml) Confirm Administered Dose 200 mg .ROUTE .STK-MED ONE Stop: 01/03/20 14:04 Rocuronium [place] (Zemuron) Confirm Administered Dose 100 mg .ROUTE .STK-MED ONE Stop: 01/03/20 14:04 Sugammadex Sodium (Bridion) Confirm Administered Dose 200 mg .ROUTE .STK-MED ONE Stop: 01/03/20 14:01 - Infant Interaction Support Person: - Recovery Exam Fundal Tone: Firm Fundal Level: At Umbilicus Fundal Placement: Midline Lochia Amount: Small Lochia Color: Rubra/Red Perineum Description: Intact, Minimal Bruising/Swelling Episiotomy/Laceration: None Bladder Status: Voiding Urinary Elimination: Voided - Exam General: Alert HEENT: Pupils Equal Neck: Supple Lungs: Clear to Auscultation Cardiovascular: Regular Rate, Regular Rhythm GI/Abdominal Exam: Normal Bowel Sounds Extremities: Normal Inspection Neurological: No New Focal Deficit Psy/Mental Status: Alert - Problem List & Annotations (1) Vaginal delivery SNOMED Code(s): 987426934 Code(s): O80 - ENCOUNTER FOR FULL-TERM UNCOMPLICATED DELIVERY Status: Acute Current Visit: Yes - Problem List Review Problem List Initiated/Reviewed/Updated: Yes - My Orders Last 24 Hours: My Active Orders 01/03/20 16:03 Patient Status [ADT] Routine Acetaminophen [Tylenol Extra Strength] 1,000 mg PO Q4H PRN Acetaminophen [Tylenol Extra Strength] 500 mg PO Q4H PRN Benzocaine/Menthol [Dermoplast Pain Relief 20%-0.5% [place]] 78 gm TOP ASDIRECTED PRN Docusate Sodium [Colace] 100 mg PO BID PRN Ibuprofen [Motrin] 400 mg PO Q4H PRN Ibuprofen [Motrin] 800 mg PO Q6H PRN Lanolin [Lansinoh HPA] See Dose Instructions TOP ASDIRECTED PRN bisacodyL [Dulcolax] 10 mg RECTAL ONETIME PRN oxyCODONE 5 mg PO Q2H PRN witch Albertina [Tucks] 1 pad TOP ASDIRECTED PRN Assess Lochia [WOMSER] Per Unit Routine Assess Uterine Involution [WOMSER] Per Unit Routine Peripheral IV Discontinue [OM.PC] Routine Resuscitation Status Routine 01/03/20 Breakfast Regular Diet [DIET] - Assessment Assessment:: 29yo P2 s/p PPD 1 Normal lochia Ambulating voiding Trouble - Plan Plan:: Discharge home
--- NOTE | 2020-01-04 07:30 | PCM48HPAN ---
Post Anesthesia Note - EVALUATION WITHIN 48HRS OF ANESTHETIC Vital Signs in Normal Range: Yes Patient Participated in Evaluation: Yes Respiratory Function Stable: Yes Airway Patent: Yes Cardiovascular Function Stable: Yes Hydration Status Stable: Yes Pain Control Satisfactory: Yes Nausea and Vomiting Control Satisfactory: Yes Mental Status Recovered: Yes Vital Signs: Last Vital Signs Temp 36.0 C L 01/04/20 04:00 Pulse 89 01/04/20 04:00 Resp 16 01/04/20 04:00 BP 138/78 01/04/20 04:00 Pulse Ox 98 01/04/20 04:00
--- NOTE | 2020-01-04 08:41 | OR ---
SURGEON: CALISTA CROWLEY DATE OF PROCEDURE: 01/03/2020 PREOPERATIVE DIAGNOSIS: A 29-year-old G2, P1-0-0-1 at 39 weeks 3 days, admitted for induction of labor. POSTOPERATIVE DIAGNOSIS: A 29-year-old G2, P1-0-0-1 at 39 weeks 3 days, admitted for induction of labor. PROCEDURE: Normal spontaneous vaginal delivery. ESTIMATED BLOOD LOSS: 300. IV FLUIDS: Pitocin running. NOTES AND FINDINGS: A live male delivered at 1524. scores 7 and 9. Weight is 4370 g. BRIEF HISTORY ABOUT THE PATIENT: She is a 29-year-old G2, P1 at 39 weeks and 3 days, who was presenting for induction of labor, elective. She received Cytotec. After she got Cytotec x2 doses, the patient was having contractions and she was making change and then the patient SROM'ed on her own. After the patient SROM'ed, tracing became category 2. On and off, she was having deep variable decelerations all the way to 50, which were recovered back to baseline with positioning. However, the variables were really deep. She was put on left lateral oxygen. There was no improvement. Then, terbutaline was given. The patient was informed she may need a as a result of this tracing. After the terbutaline was given, IUPC was placed. Amnioinfusion was also started. Tracing then recovered for a while. The patient at this time was 8 cm dilated. She then made change. She was having on and off category 2 tracing. The deep variables were much improved, so labor was allowed to progress. The patient made change. She became fully dilated. The patient being fully dilated, she was encouraged to push. DESCRIPTION OF PROCEDURE: She delivered the head, followed by the anterior and posterior shoulders. The body of the infant was delivered. was placed on maternal abdomen. Cord clamping was observed, which was delayed. Cord blood gases were obtained. Placenta was delivered via controlled cord traction. The Pitocin was started. Perineum was inspected, noted to be normal. Then, the patient was left in Labor and Delivery room in stable condition. All instrument and pad counts were correct x2. DEVAUGHN / ESSENCE /[id number] SHYANN
== END 2020-01-04 18:00 | disposition home or self-care (01) | DRG 560 ==
LOC: MW.OB 00:11 → MW.OBCHECK 00:11 → MW.OB 00:44 → MW.OBCHECK 00:44 → MERGE 16:03 → OBSVTOIN 16:03 → MW.OB 19:10
PROVIDERS: ADMIT Obstetrics & Gynecology; ATTEND Obstetrics & Gynecology
PROC: 10E0XZZ Delivery of Products of Conception, External Approach (ICD-10-PCS; principal; 2020-01-03)
PROC: 3E0E3GC Introduction of Other Therapeutic Substance into Products of Conception, Percutaneous Approach (ICD-10-PCS; 2020-01-03)
PROC: 10H07YZ Insertion of Other Device into Products of Conception, Via Natural or Artificial Opening (ICD-10-PCS; 2020-01-03)
PROC: 3E0R3BZ Introduction of Anesthetic Agent into Spinal Canal, Percutaneous Approach (ICD-10-PCS; 2020-01-03)
PROC: 00HU33Z Insertion of Infusion Device into Spinal Canal, Percutaneous Approach (ICD-10-PCS; 2020-01-03)
DX: O76 Abnormality in fetal heart rate and rhythm complicating labor and delivery (principal); O45.93 Premature separation of placenta, unspecified, third trimester; Z3A.39 39 weeks gestation of pregnancy; Z37.0 Single live birth
CPT/HCPCS: 01967; 36415; 51702; 59025; 59409; 82803; 85014; 85018; 85027; 86592; 86593; 86850; 86900; 86901; A9270-GY; J0330; J0595; J2704; J3105; J3490; J7120

== ENCOUNTER 2021-04-19 05:37 | Inpatient (IN) | payer BC ==
[2021-04-19] MEDS ORDERED: Sodium Chloride 0.9% 10 ML SDV IV PRN (19:49)
[2021-04-19] MEDS ORDERED: Sodium Chloride 0.9% 10 ML Syringe FLUSH PRN (19:49)
[2021-04-19] MEDS ORDERED: Misoprostol 200 MCG Tab PO PRN (19:49)
[2021-04-19] MEDS ORDERED: Butorphanol 1 MG/ML SDV IVPUSH PRN (19:49)
[2021-04-19] MEDS ORDERED: Tranexamic Acid 1,000 MG in Sodium Chloride 0.9% 100 ML IV PRN (19:49)
[2021-04-19] MEDS ORDERED: Carboprost Tromethamine 250 MCG/1 ML Amp IM PRN (19:49)
[2021-04-19] MEDS ORDERED: Water For Irrigation,Sterile 1,000 ML Container IRR PRN (19:49)
[2021-04-19] MEDS ORDERED: Nalbuphine 10 MG/1 ML Vial IVPUSH PRN (19:49)
[2021-04-19] MEDS ORDERED: Methylergonovine 0.2 MG/1 ML Amp IM PRN (19:49)
[2021-04-19] MEDS ORDERED: Lidocaine 1% 50 ML MDV INJECT PRN (19:49)
[2021-04-19] MEDS ORDERED: Sodium Chloride 0.9% 2.5 ML Syringe FLUSH PRN (19:49)
[2021-04-19] MEDS ORDERED: Terbutaline 1 MG/ML SDV SUBCUT PRN (19:52)
[2021-04-19] MEDS ORDERED: Oxytocin/0.9 % Sodium Chloride 30 UNIT/500 ML BAG IV SCH ×2 (20:00)
[2021-04-19] MEDS: Lactated Ringers 1,000 ML IV SCH (21:12)
[2021-04-20] MEDS ORDERED: Ropivacaine HCl/PF 200 ML ONE (01:36)
[2021-04-20] MEDS ORDERED: Bupivacaine 0.25% 30 ML SDV ONE (01:36)
[2021-04-20] MEDS: Lactated Ringers 1,000 ML IV SCH (01:39)
[2021-04-20] MEDS ORDERED: ePHEDrine 50 MG/ML SDV IVPUSH PRN (02:04)
--- NOTE | 2021-04-20 02:04 | PCM.PREANE ---
Preanesthetic Assessment - Anesthesia/Transfusion/Family Hx Anesthesia History: Prior Anesthesia Without Reaction Family History of Anesthesia Reaction: No Transfusion History: No Prior Transfusion(s) Intubation History: Unknown - Review of Systems General: No Symptoms Pulmonary: No Symptoms Cardiovascular: No Symptoms Gastrointestinal: No Symptoms Neurological: No Symptoms Other: Reports: None - Physical Assessment Height: 5 ft 8 in Weight: 260 lb ASA Class: 2 Mental Status: Alert & Oriented x3 Airway Class: Mallampati = 3 Dentition: Reports: Normal Dentition ROM/Head Extension: Full Lungs: Clear to Auscultation, Normal Respiratory Effort Cardiovascular: Regular Rate, Regular Rhythm - Lab Values: Laboratory Last Values WBC 9.82 K/uL (4.0-11.0) 04/19/21 19: RBC 4.03 M/uL (4.30-5.90) L 04/19/21 19:30 Hgb 11.4 g/dL (12.0-16.0) L 04/19/21 19: Hct 34.4 % (36.0-46.0) L 04/19/21 19: MCV 85.4 fL (80.0-98.0) 04/19/21 19:30 MCH 28.3 pg (27.0-32.0) 04/19/21 19: MCHC 33.1 g/dL (31.0-37.0) 04/19/21 19: RDW Std Deviation 45.4 fl (28.0-62.0) 04/19/21 19:30 RDW Coeff of Chloé 15 % (11.0-15.0) 04/19/21 19: Plt Count 218 K/uL (150-400) 04/19/21 19:30 MPV 11.60 fL (7.40-12.00) 04/19/21 19: Nucleated RBC % 0.0 /100WBC 04/19/21 19: Nucleated RBCs # 0 K/uL 04/19/21 19:30 Blood Type O POSITIVE 04/19/21 19:30 Antibody Screen NEGATIVE 04/19/21 19:30 - Allergies Allergies/Adverse Reactions: Allergies Allergy/AdvReac Type Severity Reaction Status Date / Time No Known Allergies Allergy Verified 04/15/21 13:04 - Blood Blood Available: Yes Product(s) Available: PRBC - Anesthesia Plan Pre-Op Medication Ordered: None - Acknowledgements Anesthesia Type Planned: Epidural Pt an Appropriate Candidate for the Planned Anesthesia: Yes Alternatives and Risks of Anesthesia Discussed w Pt/Guardian: Yes Pt/Guardian Understands and Agrees with Anesthesia Plan: Yes PreAnesthesia Questionnaire HEENT History: Reports: None Cardiovascular History: Reports: None Respiratory History: Reports: None Gastrointestinal History: Reports: GERD Genitourinary History: Reports: None 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 Musculoskeletal History: Reports: None Neurological History: Reports: None Psychiatric History: Reports: None Endocrine/Metabolic History: Reports: Obesity/BMI 30+ Hematologic History: Reports: None Immunologic History: Reports: None Oncologic (Cancer) History: Reports: None Dermatologic History: Reports: None - Infectious Disease History Infectious Disease History: Reports: Chicken Pox - Past Surgical History Head Surgeries/Procedures: Reports: None HEENT Surgical History: Reports: Tonsillectomy Cardiovascular Surgical History: Reports: None Respiratory Surgical History: Reports: None GI Surgical History: Reports: None Female Surgical History: Reports: Oophorectomy Other Female Surgeries/Procedures: right ovary removed Endocrine Surgical History: Reports: None Neurological Surgical History: Reports: None Musculoskeletal Surgical History: Reports: None Oncologic Surgical History: Reports: None Dermatological Surgical History: Reports: None - SUBSTANCE USE Tobacco Use Status *Q: Never Tobacco User Second Hand Smoke Exposure: No Recreational Drug Use History: No - HOME MEDS Home Medications: Home Meds No122/Iron/Folic Acid [ Multi Tablet] 1 each PO DAILY 07/10/19 [History] - CURRENT (IN HOUSE) MEDS Current Meds: Current Medications Butorphanol Tartrate (Butorphanol 1 Mg/Ml Sdv) 1 mg IVPUSH Q1H PRN PRN Reason: Pain (severe 7-10) Carboprost Tromethamine (Carboprost Tromethamine 250 Mcg/1 Ml Amp) 250 mcg IM ASDIRECTED PRN PRN Reason: Post Hemorrhage Oxytocin/Sodium Chloride (Oxytocin 30 Unit/500 Ml-Ns) 30 unit in 500 mls @ 500 mls/hr IV TITRATE E[facility] Tranexamic Acid 1,000 mg/ (Sodium Chloride) 110 mls @ 660 mls/hr IV ONETIME PRN PRN Reason: Bleeding Lactated Ringer's (Ringers, Lactated) 1,000 mls @ 150 mls/hr IV ASDIRECTED ELLIS Last Admin: 04/20/21 01:39 Dose: 999 mls/hr Documented by: Oxytocin/Sodium Chloride (Oxytocin 30 Unit/500 Ml-Ns) 30 unit in 500 mls @ 2 mls/hr IV TITRATE E[facility]; Protocol Last Titration: 04/19/21 23:15 Dose: 12 munits/min, 12 mls/hr Documented by: Lidocaine HCl (Lidocaine 1% 50 Ml Mdv) 50 ml INJECT ONETIME PRN PRN Reason: Laceration repair Methylergonovine Maleate (Methylergonovine 0.2 Mg/1 Ml Amp) 0.2 mg IM ASDIRECTED PRN PRN Reason: Post Hemorrhage Misoprostol (Misoprostol 200 Mcg Tab) 200 mcg PO ONETIME PRN PRN Reason: Post Hemorrhage Nalbuphine HCl (Nalbuphine 10 Mg/1 Ml Vial) 10 mg IVPUSH Q1H PRN PRN Reason: Pain (severe 7-10) Sodium Chloride (Sodium Chloride 0.9% 10 Ml Syringe) 10 ml FLUSH ASDIRECTED PRN PRN Reason: Keep Vein Open Sodium Chloride (Sodium Chloride 0.9% 2.5 Ml Syringe) 2.5 ml FLUSH ASDIRECTED PRN PRN Reason: Keep Vein Open Sodium Chloride (Sodium Chloride 0.9% 10 Ml Sdv) 10 ml IV ASDIRECTED PRN PRN Reason: IV Use Sterile Water (Water For Irrigation,Sterile 1,000 Ml Container) 1,000 ml IRR ASDIRECTED PRN PRN Reason: delivery Terbutaline Sulfate (Terbutaline 1 Mg/Ml Sdv) 0.25 mg SUBCUT ASDIRECTED PRN PRN Reason: Tacysystole Discontinued Medications Bupivacaine HCl (Bupivacaine 0.25% 30 Ml Sdv) Confirm Administered Dose 30 ml .ROUTE .STK-MED ONE Stop: 04/20/21 01:37 Ropivacaine (Naropin 0.2%) Confirm Administered Dose 200 mls @ as directed .ROUTE .STK-MED ONE Stop: 04/20/21 01:37 - Pre-Procedure Checklist Attending Provider Aware: Yes Chart Reviewed: Yes Consent Signed: Yes Labs Reviewed: Yes VS/FHR Reviewed: Yes Patient Identification Confirmation Method: Reports: Verbal Patient Pt an Appropriate Candidate for the Planned Anesthesia: Yes Alternatives and Risks of Anesthesia Discussed w Pt/Guardian: Yes - Procedure Procedure Start Date: 04/20/21 Procedure Start Time: 01:[address]: Reports: Blood Pressure, Heart Rate, SPO2 Functional IV: Yes Safety Measures: Reports: Patient Identified, Procedure Verified, Site Verified, Procedure Time Out Patient Position: Reports: Sitting Prep: Reports: Betadine x3, Sterile Drape Local Anesthetic: Reports: Intradermal Wheal w Lidocaine 1% Regional Placement Level: Reports: L3-4 Needle: Reports: 17 g Touhy Approach: Reports: Midline Technique: Reports: MINA Plastic Syringe Parasthesia: Reports: None Fluid Obtained: Reports: None Test Dose Time: 01:47 Test Dose Medication: Reports: Lidocaine 1.5% w Epinephrine 1:200,000 Test Dose Response: Reports: Negative Loading Dose Time: 01:45 Loading Dose Medication: bupivicaine 0.25% 10cc Loading Dose Patient Position: sitting Continuous Infusion Start Time: 01:50 Continuous Infusion Medication: ropivicaine 0.2% Continuous Infusion Rate: 16 Continuous Infusion PCS Bolus Option: 4 Patient Position Post Placement: Reports: Supline/KAM VS and FHR Monitored in Unit Post Placement: Yes Procedure End Date: 04/20/21 Procedure End Time: 02:43
[2021-04-20] MEDS ORDERED: Docusate Sodium 100 MG Cap PO PRN (06:05)
[2021-04-20] MEDS ORDERED: oxyCODONE 5 MG Tab PO PRN (06:05)
[2021-04-20] MEDS ORDERED: Ibuprofen 400 MG Tab PO PRN (06:05)
[2021-04-20] MEDS ORDERED: Witch Hazel Medicated Pads 40/Jar TOP PRN (06:05)
[2021-04-20] MEDS ORDERED: Bisacodyl 10 MG Supp RECTAL PRN (06:05)
[2021-04-20] MEDS ORDERED: Acetaminophen 500 MG Tab PO PRN (06:05)
[2021-04-20] MEDS ORDERED: Benzocaine/Menthol 20%-0.5% Spray 78 GM Cannister TOP PRN (06:05)
[2021-04-20] MEDS ORDERED: Lanolin 100% Cream 7 GM Tube TOP PRN (06:05)
--- NOTE | 2021-04-20 06:11 | PCM.DEL ---
L & D Note - General Info Date of Service: 04/20/21 Mother's Due Date: 04/26/21 - Delivery Note Labor: Induced by Oxytocin Delivery Outcome: Livebirth Infant Delivery Method: Spontaneous Vaginal Delivery-Single Presentation: Right Occiput Anterior (ANCELMO) Nuchal Cord: Present Anesthesia Type: Epidural Amniotic Fluid Description: Clear Laceration: 1st Degree Suture type: Other (monocryl) Suture size: 2-0 Placenta: Intact Cord: 3 Vessels Estimated Blood Loss: 300 Resuscitation Needed: No : Suctioned, Bulb Syringe, Stimulated, Warmed, Hershey Used, Warmer Used Score 1 min: 8 Score 5 min: 9 Second Stage Interventions: Reports: Pushing Effectively Delivery Comments (Free Text/Narrative):: Live Female delivered at 537am , 8/9 weight 4480g , 3VC , Nuchal cord reduced at - General Info Date of Service: 04/20/21 - Patient Data Weight - Most Recent: 117.934 kg Lab Results Last 24 Hours: Laboratory Results - last 24 hr 04/19/21 04/19/21 Range/Units 19:30 19:30 WBC 9.82 (4.0-11.0) K/uL RBC 4.03 L (4.30-5.90) M/uL Hgb 11.4 L (12.0-16.0) g/dL Hct 34.4 L (36.0-46.0) % MCV 85.4 (80.0-98.0) fL MCH 28.3 (27.0-32.0) pg MCHC 33.1 (31.0-37.0) g/dL RDW Std Deviation 45.4 (28.0-62.0) fl RDW Coeff of Chloé 15 (11.0-15.0) % Plt Count 218 (150-400) K/uL MPV 11.60 (7.40-12.00) fL Nucleated RBC % 0.0 /100WBC Nucleated RBCs # 0 K/uL Blood Type O POSITIVE Antibody Screen NEGATIVE Med Orders - Current: Current Medications Butorphanol Tartrate (Butorphanol 1 Mg/Ml Sdv) 1 mg IVPUSH Q1H PRN PRN Reason: Pain (severe 7-10) Carboprost Tromethamine (Carboprost Tromethamine 250 Mcg/1 Ml Amp) 250 mcg IM ASDIRECTED PRN PRN Reason: Post Hemorrhage Ephedrine Sulfate (Ephedrine 50 Mg/Ml Sdv) 10 mg IVPUSH Q5M PRN PRN Reason: Hypotension Oxytocin/Sodium Chloride (Oxytocin 30 Unit/500 Ml-Ns) 30 unit in 500 mls @ 500 mls/hr IV TITRATE ELLIS Tranexamic Acid 1,000 mg/ (Sodium Chloride) 110 mls @ 660 mls/hr IV ONETIME PRN PRN Reason: Bleeding Lactated Ringer's (Ringers, Lactated) 1,000 mls @ 150 mls/hr IV ASDIRECTED ELLIS Last Infusion: 04/20/21 02:05 Dose: 150 mls/hr Documented by: Oxytocin/Sodium Chloride (Oxytocin 30 Unit/500 Ml-Ns) 30 unit in 500 mls @ 2 mls/hr IV TITRATE ELLIS; Protocol Last Titration: 04/20/21 05:38 Dose: 500 munits/min, 500 mls/hr Documented by: Lidocaine HCl (Lidocaine 1% 50 Ml Mdv) 50 ml INJECT ONETIME PRN PRN Reason: Laceration repair Methylergonovine Maleate (Methylergonovine 0.2 Mg/1 Ml Amp) 0.2 mg IM ASDIRECTED PRN PRN Reason: Post Hemorrhage Misoprostol (Misoprostol 200 Mcg Tab) 200 mcg PO ONETIME PRN PRN Reason: Post Hemorrhage Nalbuphine HCl (Nalbuphine 10 Mg/1 Ml Vial) 10 mg IVPUSH Q1H PRN PRN Reason: Pain (severe 7-10) Sterile Water (Water For Irrigation,Sterile 1,000 Ml Container) 1,000 ml IRR ASDIRECTED PRN PRN Reason: delivery Discontinued Medications Bupivacaine HCl (Bupivacaine 0.25% 30 Ml Sdv) Confirm Administered Dose 30 ml .ROUTE .STK-MED ONE Stop: 04/20/21 01:37 Ropivacaine (Naropin 0.2%) Confirm Administered Dose 200 mls @ as directed .ROUTE .STK-MED ONE Stop: 04/20/21 01:37 Sodium Chloride (Sodium Chloride 0.9% 10 Ml Syringe) 10 ml FLUSH ASDIRECTED PRN PRN Reason: Keep Vein Open Sodium Chloride (Sodium Chloride 0.9% 2.5 Ml Syringe) 2.5 ml FLUSH ASDIRECTED PRN PRN Reason: Keep Vein Open Sodium Chloride (Sodium Chloride 0.9% 10 Ml Sdv) 10 ml IV ASDIRECTED PRN PRN Reason: IV Use Terbutaline Sulfate (Terbutaline 1 Mg/Ml Sdv) 0.25 mg SUBCUT ASDIRECTED PRN PRN Reason: Tacysystole - Exam Urinary Catheter Total Time: 0Days 2Hours - Problem List & Annotations (1) Vaginal delivery SNOMED Code(s): 954808263 Code(s): O80 - ENCOUNTER FOR FULL-TERM UNCOMPLICATED DELIVERY Status: Acute Current Visit: No - Problem List Review Problem List Initiated/Reviewed/Updated: Yes - My Orders Last 24 Hours: My Active Orders 04/19/21 19:30 RPR (SYPHILIS SERO) W/ RFLX [REF] Routine 04/19/21 19:49 Patient Status [ADT] Routine December Shower [RC] ASDIRECTED Notify Provider [RC] PRN Butorphanol [Stadol] 1 mg IVPUSH Q1H PRN Carboprost Tromethamine [Hemabate DS] 250 mcg IM ASDIRECTED PRN Lidocaine 1% [Xylocaine 1%] 50 ml INJECT ONETIME PRN Methylergonovine [Methergine] 0.2 mg IM ASDIRECTED PRN Nalbuphine [Nubain] 10 mg IVPUSH Q1H PRN Tranexamic Acid [Cyklokapron] 1,000 mg Sodium Chloride 0.9% [Normal Saline] 100 ml IV ONETIME Water For Irrigation,Sterile [Sterile Water for Irrigation] 1,000 ml IRR ASDIRECTED PRN miSOPROStoL [Cytotec] 200 mcg PO ONETIME PRN Peripheral IV Insertion Adult [OM.PC] Routine 04/19/21 19:52 Bedrest Bathroom Privileges [RC] ASDIRECTED Communication Order [RC] ASDIRECTED Notify Provider [RC] PRN Notify Provider [RC] STAT 04/19/21 20:00 Lactated Ringers [Ringers, Lactated] 1,000 ml IV ASDIRECTED Oxytocin/0.9 % Sodium Chloride [Oxytocin 30 Unit/500 ML-NS] 30 unit in 500 ml IV TITRATE Oxytocin/0.9 % Sodium Chloride [Oxytocin 30 Unit/500 ML-NS] 30 unit in 500 ml IV TITRATE Medication Administration Instruction [OM.PC] Q3H 04/20/21 06:05 Acetaminophen [Tylenol Extra Strength] 1,000 mg PO Q4H PRN Acetaminophen [Tylenol Extra Strength] 500 mg PO Q4H PRN Benzocaine/Menthol [Dermoplast Pain Relief 20%-0.5% [place]] 78 gm TOP ASDIRECTED PRN Docusate Sodium [Colace] 100 mg PO Q12H PRN Ibuprofen [Motrin] 400 mg PO Q4H PRN Ibuprofen [Motrin] 800 mg PO Q6H PRN Lanolin [Lansinoh HPA] See Dose Instructions TOP ASDIRECTED PRN bisacodyL [Dulcolax] 10 mg RECTAL ONETIME PRN oxyCODONE 5 mg PO Q2H PRN witch Albertina [Tucks] 1 pad TOP ASDIRECTED PRN Resuscitation Status Routine 04/20/21 06:06 Patient Status [ADT] Routine May Shower [RC] ASDIRECTED Up ad Saumya [RC] ASDIRECTED Vital Signs [RC] PER UNIT ROUTINE Assess Lochia [WOMSER] Per Unit Routine Assess Uterine Involution [WOMSER] Per Unit Routine Peripheral IV Discontinue [OM.PC] Routine 04/21/21 05:11 HEMOGLOBIN/HEMATOCRIT,HH [HEME] Timed - Assessment Assessment:: 30yo P3 s/p PPD0 Macrosomia Rh positive , Rubella Immune - Plan Plan:: Routine care
--- NOTE | 2021-04-20 07:46 | OR ---
SURGEON: CALISTA CROWLEY DATE OF PROCEDURE: 04/20/2021 PREOPERATIVE DIAGNOSES: A 30-year-old, G3, P 2-0-0-2, at 39 weeks 1 day, admitted for induction of labor, elective reason, suspected macrosomia. POSTOPERATIVE DIAGNOSES: A 30-year-old, G3, P 2-0-0-2, at 39 weeks 1 day, admitted for induction of labor, elective reason, suspected macrosomia. PROCEDURE: Normal spontaneous vaginal delivery, repair of first-degree vaginal laceration. ESTIMATED BLOOD LOSS: 300. IV FLUIDS: Pitocin running. ANESTHESIA: Epidural. FINDINGS: A live female delivered at 5:37 a.m. score was 8 and 9. Weight was 4480 g. There was a nuchal cord around the neck that was reduced. Also noted 3-vessel cord. BRIEF HISTORY ABOUT THE PATIENT: She is a 30-year-old, G3, P 2-0-0-2, at 39 weeks 1 day who had routine care complicated by mild polyhydramnios, which resolved on last ultrasound. The patient had suspected macrosomia with EFW greater than 95 percentile. She was brought in for induction. She was 2 cm dilated. She was started on Pitocin, and the patient made progress to 5 after which she SROMed on her own. She was requesting epidural, which she got. She had normal progress, and she became fully dilated. With the patient being fully dilated, she was encouraged to push. DESCRIPTION OF PROCEDURE: With good pushing effort, she delivered the head, subsequently by the anterior and posterior shoulder. There was a nuchal cord around the neck, which was reduced after . The body of the infant was delivered. Infant was placed on maternal abdomen. Delayed cord clamping was observed. Cord was clamped and cut and placenta was delivered via controlled cord traction. The cord blood gases were obtained. The perineum was inspected. A first-degree laceration was noted, which was repaired in layer with 2-0 Monocryl. All instrument and pad counts were correct x2. DEVAUGHN / ESSENCE /[id number] MTDD
--- NOTE | 2021-04-20 09:47 | PCM.POSTAN ---
POST ANESTHESIA ASSESSMENT - MENTAL STATUS Mental Status: Alert, Oriented - RESPIRATORY Respiratory Status: Respiratory Rate WNL, Airway Patent, O2 Saturation Stable - CARDIOVASCULAR CV Status: Pulse Rate WNL, Blood Pressure Stable - GASTROINTESTINAL GI Status: No Symptoms - POST OP HYDRATION Hydration Status: Adequate & Stable
--- NOTE | 2021-04-20 09:47 | PCM48HPAN ---
Post Anesthesia Note - EVALUATION WITHIN 48HRS OF ANESTHETIC Vital Signs in Normal Range: Yes Patient Participated in Evaluation: Yes Respiratory Function Stable: Yes Airway Patent: Yes Cardiovascular Function Stable: Yes Hydration Status Stable: Yes Pain Control Satisfactory: Yes Nausea and Vomiting Control Satisfactory: Yes Mental Status Recovered: Yes
[2021-04-20] MEDS: Ibuprofen 800 MG Tab PO PRN ×2 (09:50→18:56)
[2021-04-20] MEDS: Acetaminophen 500 MG Tab PO PRN ×2 (14:39→23:00)
[2021-04-21] MEDS: Ibuprofen 800 MG Tab PO PRN (04:37)
--- NOTE | 2021-04-21 08:45 | PCM.PNPP ---
- General Info Date of Service: 04/21/21 Subjective Update: 30yo P3 s/p PPD1 ambulating , voiding , tolerating regular diet Normal lochia , Breast and bottle feeding Functional Status: Reports: Pain Controlled, Tolerating Diet, Ambulating, Urinating - Review of Systems General: Reports: No Symptoms HEENT: Reports: No Symptoms Pulmonary: Reports: No Symptoms Cardiovascular: Reports: No Symptoms Gastrointestinal: Reports: No Symptoms Genitourinary: Reports: No Symptoms Musculoskeletal: Reports: No Symptoms Skin: Reports: No Symptoms Neurological: Reports: No Symptoms Psychiatric: Reports: No Symptoms - General Info Date of Service: 04/21/21 - Patient Data Vital Signs - Most Recent: Last Vital Signs Temp 36.4 C 04/21/21 07:00 Pulse 87 04/21/21 07:00 Resp 16 04/21/21 07:00 BP 120/78 04/21/21 07:00 Pulse Ox 98 04/21/21 07:00 Weight - Most Recent: 117.934 kg Lab Results - Last 24 Hours: Laboratory Results - last 24 hr 04/21/21 Range/Units 05:37 Hgb 10.5 L (12.0-16.0) g/dL Hct 32.4 L (36.0-46.0) % Med Orders - Current: Current Medications Acetaminophen (Acetaminophen 500 Mg Tab) 500 mg PO Q4H PRN PRN Reason: Pain (mild 1-3) Acetaminophen (Acetaminophen 500 Mg Tab) 1,000 mg PO Q4H PRN PRN Reason: Pain (mild 1-3) Last Admin: 04/20/21 23:00 Dose: 1,000 mg Documented by: Benzocaine/Menthol (Benzocaine/Menthol 20%-0.5% [place] 78 Gm Cannister) 78 gm TOP ASDIRECTED PRN PRN Reason: Perineal Comfort Measure Last Admin: 04/20/21 11:25 Dose: 78 gm Documented by: Bisacodyl (Bisacodyl 10 Mg Supp) 10 mg RECTAL ONETIME PRN PRN Reason: Constipation Butorphanol Tartrate (Butorphanol 1 Mg/Ml Sdv) 1 mg IVPUSH Q1H PRN PRN Reason: Pain (severe 7-10) Carboprost Tromethamine (Carboprost Tromethamine 250 Mcg/1 Ml Amp) 250 mcg IM ASDIRECTED PRN PRN Reason: Post Hemorrhage Docusate Sodium (Docusate Sodium 100 Mg Cap) 100 mg PO Q12H PRN PRN Reason: Constipation Last Admin: 04/20/21 09:50 Dose: 100 mg Documented by: Emollient Ointment (Lanolin 100% Cream 7 Gm Tube) 0 gm TOP ASDIRECTED PRN PRN Reason: Sore Nipples Ephedrine Sulfate (Ephedrine 50 Mg/Ml Sdv) 10 mg IVPUSH Q5M PRN PRN Reason: Hypotension Oxytocin/Sodium Chloride (Oxytocin 30 Unit/500 Ml-Ns) 30 unit in 500 mls @ 500 mls/hr IV TITRATE ELLIS Tranexamic Acid 1,000 mg/ (Sodium Chloride) 110 mls @ 660 mls/hr IV ONETIME PRN PRN Reason: Bleeding Lactated Ringer's (Ringers, Lactated) 1,000 mls @ 150 mls/hr IV ASDIRECTED ELLIS Last Infusion: 04/20/21 02:05 Dose: 150 mls/hr Documented by: Oxytocin/Sodium Chloride (Oxytocin 30 Unit/500 Ml-Ns) 30 unit in 500 mls @ 2 mls/hr IV TITRATE ELLIS; Protocol Last Titration: 04/20/21 05:38 Dose: 500 munits/min, 500 mls/hr Documented by: Ibuprofen (Ibuprofen 400 Mg Tab) 400 mg PO Q4H PRN PRN Reason: Pain (mild 1-3) Ibuprofen (Ibuprofen 800 Mg Tab) 800 mg PO Q6H PRN PRN Reason: Pain (mild 1-3) Last Admin: 04/21/21 04:37 Dose: 800 mg Documented by: Lidocaine HCl (Lidocaine 1% 50 Ml Mdv) 50 ml INJECT ONETIME PRN PRN Reason: Laceration repair Methylergonovine Maleate (Methylergonovine 0.2 Mg/1 Ml Amp) 0.2 mg IM ASDIRECTED PRN PRN Reason: Post Hemorrhage Misoprostol (Misoprostol 200 Mcg Tab) 200 mcg PO ONETIME PRN PRN Reason: Post Hemorrhage Nalbuphine HCl (Nalbuphine 10 Mg/1 Ml Vial) 10 mg IVPUSH Q1H PRN PRN Reason: Pain (severe 7-10) Oxycodone HCl (Oxycodone 5 Mg Tab) 5 mg PO Q2H PRN PRN Reason: Pain (severe 7-10) Sterile Water (Water For Irrigation,Sterile 1,000 Ml Container) 1,000 ml IRR ASDIRECTED PRN PRN Reason: delivery Witch Christie (Witch Christie Medicated Pads 40/Jar) 1 pad TOP ASDIRECTED PRN PRN Reason: comfort care Last Admin: 04/20/21 11:26 Dose: 1 container Documented by: Discontinued Medications Bupivacaine HCl (Bupivacaine 0.25% 30 Ml Sdv) Confirm Administered Dose 30 ml .ROUTE .STK-MED ONE Stop: 04/20/21 01:37 Ropivacaine (Naropin 0.2%) Confirm Administered Dose 200 mls @ as directed .ROUTE .STK-MED ONE Stop: 04/20/21 01:37 Sodium Chloride (Sodium Chloride 0.9% 10 Ml Syringe) 10 ml FLUSH ASDIRECTED PRN PRN Reason: Keep Vein Open Sodium Chloride (Sodium Chloride 0.9% 2.5 Ml Syringe) 2.5 ml FLUSH ASDIRECTED PRN PRN Reason: Keep Vein Open Sodium Chloride (Sodium Chloride 0.9% 10 Ml Sdv) 10 ml IV ASDIRECTED PRN PRN Reason: IV Use Terbutaline Sulfate (Terbutaline 1 Mg/Ml Sdv) 0.25 mg SUBCUT ASDIRECTED PRN PRN Reason: Tacysystole - Interaction Support Person: - Recovery Exam Fundal Tone: Firm Fundal Level: 1 Fingerbreadths Below Umbilicus Fundal Placement: Midline Lochia Amount: Scant Lochia Color: Rubra/Red Perineum Description: Intact, Minimal Bruising/Swelling Episiotomy/Laceration: Approximated Bladder Status: Voiding Urinary Elimination: Voided - Exam General: Alert HEENT: Pupils Equal Neck: Supple Lungs: Clear to Auscultation Cardiovascular: Regular Rate, Regular Rhythm GI/Abdominal Exam: Normal Bowel Sounds Extremities: Normal Inspection Psy/Mental Status: Alert - Problem List & Annotations (1) Vaginal delivery SNOMED Code(s): 215345798 Code(s): O80 - ENCOUNTER FOR FULL-TERM UNCOMPLICATED DELIVERY Status: Acute Current Visit: No - Problem List Review Problem List Initiated/Reviewed/Updated: Yes - Assessment Assessment:: 30yo P3 s/p PPD1 Macrosomia Rh positive , Rubella Immune - Plan Plan:: Routine care Discharge instructions given Continue PNV and Iron Pain control with OTC tylenol and motrin
== END 2021-04-21 12:20 | disposition home or self-care (01) | DRG 560 ==
LOC: MW.OB 05:37 → OBSVTOIN 04-20 05:37 → MW.OB 04-20 11:35
PROVIDERS: ADMIT Obstetrics & Gynecology; ATTEND Obstetrics & Gynecology
PROC: 10E0XZZ Delivery of Products of Conception, External Approach (ICD-10-PCS; principal; 2021-04-20)
PROC: 0HQ9XZZ Repair Perineum Skin, External Approach (ICD-10-PCS; 2021-04-20)
PROC: 3E0R3BZ Introduction of Anesthetic Agent into Spinal Canal, Percutaneous Approach (ICD-10-PCS; 2021-04-20)
DX: O36.63X0 Maternal care for excessive fetal growth, third trimester, not applicable or unspecified (principal); Z37.0 Single live birth; O70.0 First degree perineal laceration during delivery; O99.62 Diseases of the digestive system complicating childbirth; K21.9 Gastro-esophageal reflux disease without esophagitis; Z3A.39 39 weeks gestation of pregnancy
CPT/HCPCS: 36415; 51702; 59025; 59409; 85014; 85018; 85027; 86592; 86850; 86900; 86901; A9270-GY; J2590; J2795; J3490; J7120